=== PATIENT | male | born 1950 | race Caucasian/White ===

== ENCOUNTER 2023-05-27 16:54 | Inpatient (IN) | payer OTHER, MEDICARE ==
[~2023-05-27] VITALS: Ht 175.3 cm; Wt 128.1 kg
[~2023-05-27 16:54] MED LIST: AMLO10 PO; ASPI81CH PO; ATOR10 PO; BACI500TO BOTHEYES; BP MEDICATION; BUPR75 PO; CIPR500 PO; CITA20 PO; ETOD400 PO; HYDACE10B PO; HYDCHL25 PO; K-TAB ER8 MEQ PO; LEVFLO500 PO; METH10; Norco 7.5-3251 EACH PO; OMEP20ER PO; OXYC5 PO; TRAZ100; TRAZ100 PO; [UNRECOGNIZED DRUG - REMARK]
[2023-05-27 18:53] LABS: BASOPHILS ABSOLUTE AUTO 0.04 K/mm3 (0.00-0.23); BASOPHILS PERCENT AUTO 0 % (0-2); Base Excess Venous -1.1 mmol/L; Bicarbonate Venous 22.5 mmol/L (24.0-30.0); EOSINOPHILS ABSOLUTE AUTO 0.04 K/mm3 (0.00-0.68); EOSINOPHILS PERCENT AUTO 0 % (0-6); Hematocrit 43.9 % (37.0-53.0); Hemoglobin 14.2 g/dL (13.5-17.5); IMMATURE GRAN ABSOLUTE AUTO 0.06 K/mm3 (0.00-0.10); IMMATURE GRAN PERCENT AUTO 0 % (0-1); LYMPHOCYTES ABSOLUTE AUTO 0.63 K/mm3 (0.84-5.20); LYMPHOCYTES PERCENT AUTO 4 % (21-46); MONOCYTES ABSOLUTE AUTO 1.12 K/mm3 (0.16-1.47); MONOCYTES PERCENT AUTO 7 % (4-13); Mean Corpuscular HGB 29.2 pg (26.0-34.0); Mean Corpuscular HGB Conc 32.3 g/dL (31.5-36.5); Mean Corpuscular Volume 90 fL (80-100); Mean Platelet Volume 11.1 fL (9.1-12.4); NEUTROPHILS ABSOLUTE AUTO 13.42 K/mm3 (1.96-9.15); NEUTROPHILS PERCENT AUTO 88 % (41-73); PCO2 Venous 52.5 mmHg (38-42); Platelet Count 296 K/mm3 (150-400); RDW Coefficient Variation 12.7 % (11.7-14.2); RDW Standard Deviation 42.2 fL (35.1-46.3); Red Blood Cell Count 4.86 M/mm3 (4.30-5.90); White Blood Cell Count 15.31 K/mm3 (4.00-11.30); pH Blood Venous 7.29 (7.34-7.37)
[2023-05-27 19:20] LABS: Albumin, Blood 2.6 g/dL (3.4-5.0); Albumin/Globulin Ratio 0.5 (0.8-1.8); Bilirubin, Total 0.9 mg/dL (0.1-1.0); Bun/Creatinine Ratio 29.5 (12.0-20.0); Calcium, Blood 9.9 mg/dL (8.5-10.1); Creatinine, Blood 1.76 mg/dL (0.60-1.20); Globulin, Blood 5.6 g/dL (2.2-4.0); Potassium, Blood 3.7 mmol/L (3.5-5.5); Thyroid Stimulating Hormone 0.12 uIU/mL (0.360-4.800); Total Protein, Blood 8.2 g/dL (6.4-8.2)
[2023-05-27 19:33] LABS: Influenza A, PCR NEGATIVE (NEGATIVE); Influenza B, PCR NEGATIVE (NEGATIVE); Resp Syncytial Virus, PCR NEGATIVE (NEGATIVE); SARS-Cov-2 (COVID-19) PCR, MMC NEGATIVE (NEGATIVE)
[2023-05-27 23:03] VITALS: BP 156/69
[2023-05-28] VITALS (7 sets, daily range): BP systolic 120–154; BP diastolic 78–101
[2023-05-28 01:13] LABS: BASOPHILS ABSOLUTE AUTO 0.03 K/mm3 (0.00-0.23); BASOPHILS PERCENT AUTO 0 % (0-2); EOSINOPHILS PERCENT AUTO 0 % (0-6); Hematocrit 43.1 % (37.0-53.0); Hemoglobin 13.6 g/dL (13.5-17.5); IMMATURE GRAN ABSOLUTE AUTO 0.09 K/mm3 (0.00-0.10); IMMATURE GRAN PERCENT AUTO 1 % (0-1); LYMPHOCYTES ABSOLUTE AUTO 0.72 K/mm3 (0.84-5.20); LYMPHOCYTES PERCENT AUTO 5 % (21-46); MONOCYTES ABSOLUTE AUTO 0.61 K/mm3 (0.16-1.47); MONOCYTES PERCENT AUTO 4 % (4-13); Mean Corpuscular HGB 29.2 pg (26.0-34.0); Mean Corpuscular HGB Conc 31.6 g/dL (31.5-36.5); Mean Corpuscular Volume 93 fL (80-100); NEUTROPHILS ABSOLUTE AUTO 13.29 K/mm3 (1.96-9.15); NEUTROPHILS PERCENT AUTO 90 % (41-73); Platelet Count 306 K/mm3 (150-400); RDW Coefficient Variation 12.8 % (11.7-14.2); RDW Standard Deviation 43.8 fL (35.1-46.3); Red Blood Cell Count 4.65 M/mm3 (4.30-5.90); White Blood Cell Count 14.74 K/mm3 (4.00-11.30)
[2023-05-28 01:39] LABS: Albumin, Blood 2.4 g/dL (3.4-5.0); Albumin/Globulin Ratio 0.4 (0.8-1.8); Bilirubin, Total 0.6 mg/dL (0.1-1.0); Bun/Creatinine Ratio 28.5 (12.0-20.0); Calcium, Blood 9.7 mg/dL (8.5-10.1); Creatinine, Blood 2.07 mg/dL (0.60-1.20); Globulin, Blood 5.4 g/dL (2.2-4.0); Potassium, Blood 3.6 mmol/L (3.5-5.5); Total Protein, Blood 7.8 g/dL (6.4-8.2)
--- NOTE | 2023-05-28 02:18 | NUR ---
PHYSICIAN COMMUNICATION CONTACTED DR CHURCHILL TO NOTIFY HER THAT THE PATIENT'S 0100 LACTIC ACID CAME BACK AT 3.1. DR CHURCHILL SAID TO START GENTLE HYDRATION AT WITH NORMAL SALINE AT 100 ML/HR AND TO CHECK THE PATIENT'S LACTIC ACID EVERY FOUR HOURS UNTIL IT PEAKS.
[2023-05-28 04:59] LABS: Base Excess Venous -3.7 mmol/L; Bicarbonate Venous 21.4 mmol/L (24.0-30.0); PCO2 Venous 40.5 mmHg (38-42); pH Blood Venous 7.34 (7.34-7.37)
[2023-05-28 05:18] LABS: Adenovirus Not Detected (NOT DETECT); Bordetella pertussis Not Detected (NOT DETECT); Chlamydophila pneumoniae Not Detected (NOT DETECT); Coronavirus 229E Not Detected (NOT DETECT); Coronavirus HKU1 Not Detected (NOT DETECT); Coronavirus NL63 Not Detected (NOT DETECT); Coronavirus OC43 Not Detected (NOT DETECT); Human Metapneumovirus Not Detected (NOT DETECT); Human Rhinovirus/Enterovirus Detected (NOT DETECT); Influenza A/2009-H1 Not Detected (NOT DETECT); Influenza A/H1 Not Detected (NOT DETECT); Influenza A/H3 Not Detected (NOT DETECT); Influenza B Not Detected (NOT DETECT); Mycoplasma pneumoniae Not Detected (NOT DETECT); Parainfluenza Virus 1 Not Detected (NOT DETECT); Parainfluenza Virus 2 Not Detected (NOT DETECT); Parainfluenza Virus 3 Not Detected (NOT DETECT); Parainfluenza Virus 4 Not Detected (NOT DETECT); Respiratory Syncytial Virus Not Detected (NOT DETECT); SARS-Cov-2 (COVID-19), BioFire Not Detected (NOT DETECT)
--- NOTE | 2023-05-28 07:15 | NUR ---
SHIFT SUMMARY PATIENT ARRIVED TO PCU 15 VIA STRETCHER AT 2255. HE IS ALERT AND ORIENTED X4, WAS ABLE TO SELF TRANSFER TO THE BED WITH MINIMAL ASSISTANCE. PATIENT ARRIVED ON 3 LITERS O2 VIA NASAL CANULA, PATIENT WAS TACHYPNIC AT 33 BREATHS PER MINUTE WITH ACCESSORY MUSCLE USE. LUNG SOUNDS RHONCHUS THROUGHOUT. PATIENT PLACED ON BIPAP TO HELP WITH WORK OF BREATHING. PATIENT DENIED HAVING CHEST PAIN/PRESSURE, TROPONIN PEAKED AT 477. ATTEMPTED GENTLE HYDRATION WITH NS AT 100 ML/HR FOR LACTIC ACID OF 3.1 BUT PATIENT DESATED TO LOW 80'S AND REQUIRED INCREASED O2 AND RT ADJUSTED BIPAP SETTINGS. PATIENT DID NOT VOID OVERNIGHT, BLADDER SCAN SHOWED 61 ML. BLOOD PRESSURE STABLE. SINUS TACH IN 120'S ON TELE. NO EDEMA NOTED. PATIENT CURRENTLY ON 3 LITERS O2 VIA NC SATING 94%. WILL CONTINUE TO MONITOR. CALL LIGHT WITHIN REACH. CURRENTLY
--- NOTE | 2023-05-28 17:30 | NUR ---
ASSUMED CARE OF PT AT 0700 THIS AM. PT LETHARGIC, OPENS EYES TO VERBAL STIM, THEN QUICKLY FALLS BACK TO SLEEP. 02 SATS DROPPING INTO THE 80S, RR 22. PT PLACED ON BIPAP W 4L O2 BLEED IN FROM APROX 0800 TO 1130. PT'S IN ROOM TO VISIT, PT REQUESTS BIPAP OFF FOR NOW. PLACED ON 3L NC, AND 02 SATS HAVE MAINTAINED T/O THE DAY. SEE DOCUMENTED VS AND ASSESSMENT. PT IS MORE AWAKE THIS AFTERNOON AND STATES HIS BREATHING FEELS IMPROVED. RR DOWN 18, SPO2 94% 3L NC, BREATH SOUNDS LESS COARSE. PT HAS NOT BEEN ABLE TO PRODUCE A SPUTUM SAMPLE SO FAR TODAY. POWERGLIDE PLACED TO SERVANDO, LAC IV INFILTRATED WITH NS. +VOID AND +BM TODAY. PT IS ABLE TO USE CALL LIGHT FOR NEEDS, CALL LIGHT IN REACH. WILL CONTINUE TO MONITOR AND GIVE REPORT TO NOC SHIFT RN.
[2023-05-29 00:25] LABS: Source, Urine Clean Catch
[2023-05-29 00:27] LABS: Bilirubin, Urine Neg (Neg); Blood, Urine 1+ (Neg); Glucose Qualitative, Urine Neg (Neg); Ketones, Urine Neg (Neg); Leukocyte Esterase, Urine Neg (Neg); Nitrite, Urine Neg (Neg); Protein, Urine 1+ (Neg); Urobilinogen, Urine NORM (Normal)
[2023-05-29 00:33] LABS: Appearance, Urine Clear (Clear); Color, Urine Yellow (P-Yellow)
[2023-05-29 00:35] LABS: Amorphous Light (0-Heavy); Bacteria Few /hpf; Red Blood Cells, Urine 0-2 /hpf (0-2); Squamous Epithelial Cells Rare /hpf (Few); White Blood Cells, Urine 0-2 /hpf (0-5)
[2023-05-29 04:19] VITALS: BP 138/67
[2023-05-29 04:47] LABS: BASOPHILS ABSOLUTE AUTO 0.04 K/mm3 (0.00-0.23); BASOPHILS PERCENT AUTO 0 % (0-2); EOSINOPHILS PERCENT AUTO 0 % (0-6); Hematocrit 40.4 % (37.0-53.0); Hemoglobin 12.7 g/dL (13.5-17.5); Mean Corpuscular HGB 29.1 pg (26.0-34.0); Mean Corpuscular HGB Conc 31.4 g/dL (31.5-36.5); Mean Corpuscular Volume 93 fL (80-100); Mean Platelet Volume 11.1 fL (9.1-12.4); NRBC ABSOLUTE 0.03 K/mm3 (0.00-0.02); NRBC Auto 0.2 /100 WBC (0.0-0.2); Platelet Count 351 K/mm3 (150-400); RDW Coefficient Variation 12.8 % (11.7-14.2); RDW Standard Deviation 43.8 fL (35.1-46.3); Red Blood Cell Count 4.36 M/mm3 (4.30-5.90); White Blood Cell Count 18.62 K/mm3 (4.00-11.30)
[2023-05-29 04:54] LABS: IMMATURE GRAN ABSOLUTE AUTO 0.23 K/mm3 (0.00-0.10); IMMATURE GRAN PERCENT AUTO 1 % (0-1); LYMPHOCYTES ABSOLUTE AUTO 0.97 K/mm3 (0.84-5.20); LYMPHOCYTES PERCENT AUTO 5 % (21-46); MONOCYTES ABSOLUTE AUTO 0.59 K/mm3 (0.16-1.47); MONOCYTES PERCENT AUTO 3 % (4-13); NEUTROPHILS ABSOLUTE AUTO 16.79 K/mm3 (1.96-9.15); NEUTROPHILS PERCENT AUTO 90 % (41-73)
--- NOTE | 2023-05-29 04:54 | NUR ---
SHIFT SUMMARY PT A&Ox4, CALLS AND COMMUNICATES NEEDS APPROPRIATELY. BP STABLE, SR-ST 90-120's, DENIES CP/PRESSURE. PT WITH SHORT FUN OF V-TACH AND SHORT RUN OF SVT, ASYMPTOMATIC. SpO2> 92% 2L VIA NC, WORE BIPAP FOR APPROXIMATELY 1 HOUR THEN REFUSED. REPORTS SOB WITH ACTIVITY, VERY WHEEZY AND CONGESTED. NO OTHER EVENTS, WILL REPORT TO ONCOMING RN.
[2023-05-29 05:01] LABS: Bun/Creatinine Ratio 32.9 (12.0-20.0); Creatinine, Blood 2.19 mg/dL (0.60-1.20)
[2023-05-29 08:58] VITALS: BP 151/76
[2023-05-29 11:46] VITALS: BP 126/90
--- NOTE | 2023-05-29 15:01 | NUR ---
ASSUMED CARE OF PT AT 0700 THIS AM. NO ACUTE EVENTS OVERNIGHT REPORTED. PT NOW ON 2L O2 VIA NC, SPO2>92%. PT HAS NO COMPLAINTS THIS AM. PT IS ABLE TO USE CALL LIGHT FOR NEEDS, CALL LIGHT IN REACH, WILL CONTINUE TO MONITOR.
[2023-05-29 16:37] VITALS: BP 157/89
--- NOTE | 2023-05-29 19:27 | NUR ---
NO CHANGES SINCE LAST NOTE. REPORT GIVEN TO NOC SHIFT RN.
[2023-05-29 21:00] VITALS: BP 153/57
[2023-05-29 23:18] VITALS: BP 152/76
[2023-05-30 04:13] VITALS: BP 152/85
[2023-05-30 04:15] LABS: Hemoglobin 11.9 g/dL (13.5-17.5); Mean Corpuscular HGB Conc 32.2 g/dL (31.5-36.5); Mean Corpuscular Volume 90 fL (80-100); Mean Platelet Volume 10.8 fL (9.1-12.4); NRBC ABSOLUTE 0.02 K/mm3 (0.00-0.02); NRBC Auto 0.1 /100 WBC (0.0-0.2); Platelet Count 323 K/mm3 (150-400); RDW Coefficient Variation 12.8 % (11.7-14.2); White Blood Cell Count 13.63 K/mm3 (4.00-11.30)
[2023-05-30 04:37] LABS: Bun/Creatinine Ratio 41.3 (12.0-20.0); Calcium, Blood 9.2 mg/dL (8.5-10.1); Creatinine, Blood 1.89 mg/dL (0.60-1.20); Potassium, Blood 4.1 mmol/L (3.5-5.5); Thyroxine (T4) 8.4 ug/dL (4.5-12.1)
--- NOTE | 2023-05-30 04:42 | NUR ---
SHIFT SUMMARY: PT ALERT AND ORIENTED X4, ABLE TO FOLLOW COMMANDS AND MAKE NEEDS KNOWN. BP AND HR STABLE. AFEBRILE, LUNG SOUNDS REMAIN COARSE WITH WHEEZES, PT WITH NON PRODUCTIVE COUGH. RESP 22-24. ON 3L NC SATS >94%. DENIES CP/PRESSURE. PULSES STRONG AND EQUAL THROUGHOUT. PT WITH IMPROVED URINIARY OUTPUT APPROX 1200 ML. ABLE TO USE URINAL IND AT BEDSIDE. NO BM. DENIES PAIN. BED IN LOW, CALL LIGHT IN REACH, WILL REPORT TO ONCOMING RN.
[2023-05-30 07:56] VITALS: BP 158/77
--- NOTE | 2023-05-30 12:09 | NUR ---
ASSUMED CARE OF PT AT 0700 THIS AM. PT OOB TO RECLINER CHAIR FOR BREAKFAST AND HAS STAYED IN THE CHAIR SINCE. REINFORCED TEACHING ABOUT FLUTTER VALVE USE, COUGH/DEEP BREATHE AND IMPORTANCE OF BEING OOB. SP02 > 94% ON 3.5L NC. APROX 1200 RT JEM SPOKE WITH THIS RN ABOUT CONCERNS SHE HAS FOR THE PT'S BREATHING. SHE PLACED PT ON BIPAP AND IS CONCERNED HE MAY BE FLUID OVERLOADED. DR GALLO CONTACTED WITH CONCERNS, STATES HE WILL REVIEW THE CHART AND PLACE ORDERS. PT RESTING IN RECLINER WITH BIPAP IN PLACE, SPO2 97%, HR 80 AT THIS TIME. CALL LIGHT IN REACH, WILL CONTINUE TO MONITOR.
[2023-05-30 12:15] VITALS: BP 146/78
[2023-05-30 15:48] VITALS: BP 154/76
--- NOTE | 2023-05-30 18:20 | NUR ---
REPEAT CXR THIS AFTERNOON. PT GIVEN 40MG LASIX IV WITH GOOD URINE OUTPUT. PT STATES HIS BREATHING FEELS BETTER AND HE IS TOLERATING BEING OFF THE BIPAP, 3L O2 VIA NC. ECHO COMPLETED THIS AFTERNOON, TECH REPORTS DIFFICULTY OBTAINING IMAGES D/T PT'S BODY HABITUS. STATES SHE WILL TRY AGAIN TOMORROW. NO OTHER ACUTE EVENTS T/O THE SHIFT. PT IS RESTING IN BED AT THIS TIME, APPEARS TO BE SLEEPING, NO S/SX OF RESP DISTRESS NOTED, HR 75 SP02 100%. CALL LIGHT IN REACH, PT USES FOR NEEDS. WILL CONTINUE TO MONITOR AND GIVE REPORT TO NOC SHIFT RN.
[2023-05-30 20:36] VITALS: BP 153/56
[2023-05-31 00:30] VITALS: BP 155/72
[2023-05-31 04:02] VITALS: BP 156/70
[2023-05-31 04:51] LABS: Bun/Creatinine Ratio 42.6 (12.0-20.0); Calcium, Blood 9.1 mg/dL (8.5-10.1); Creatinine, Blood 1.69 mg/dL (0.60-1.20); Potassium, Blood 4.6 mmol/L (3.5-5.5)
--- NOTE | 2023-05-31 06:47 | NUR ---
SHIFT SUMMARY PATIENT ALERT AND ORIENTED X4. HAD NO COMPLAINTS OF PAIN OR SHORTNESS OF BREATH. PATIENT CONTINUES ON 3 LITERS O2 VIA NC, LUNG SOUNDS WHEEZY THROUGHOUT. VITAL SIGNS STABLE. NO ACUTE ISSUES NOTED OVERNIGHT. WILL CONTINUE TO MONITOR. CALL LIGHT WITHIN REACH.
--- NOTE | 2023-05-31 07:19 | NUR ---
Bedside report received from LAUREL Estrada. Pt is awake, coughing occasionally and asking for more ice water.
--- NOTE | 2023-05-31 08:44 | NUR ---
pt states that he is extremely thirsty. Assisted up to recliner chair at bedside for breakfast. Ice water provided. Tachypnea and mild dyspnea noted with activity.
[2023-05-31 08:45] VITALS: BP 122/75
--- NOTE | 2023-05-31 14:39 | NUR ---
Pt is napping in the recliner chair.
[2023-05-31 15:37] VITALS: BP 154/63
[2023-05-31 15:38] VITALS: BP 154/63
--- NOTE | 2023-05-31 16:13 | NUR ---
Pt awakened, while sitting in recliner, for routine vital signs. Attempted to use the flutter valve, but it was a weak effort and he was still a little sleepy. Noted lung sounds are still wheezy throughout and he has a non productive but moist sounding cough. Assisted with sponge bath by PCT and then got back into bed. Appears to be sleeping at this time, in bed.
[2023-05-31 20:11] VITALS: BP 175/65
[2023-06-01 04:45] VITALS: BP 175/65
[2023-06-01 04:56] LABS: Hematocrit 40.2 % (37.0-53.0); Hemoglobin 12.6 g/dL (13.5-17.5); Mean Corpuscular HGB Conc 31.3 g/dL (31.5-36.5); Mean Corpuscular Volume 92 fL (80-100); Mean Platelet Volume 10.2 fL (9.1-12.4); Platelet Count 354 K/mm3 (150-400); RDW Coefficient Variation 12.8 % (11.7-14.2); RDW Standard Deviation 43.1 fL (35.1-46.3); Red Blood Cell Count 4.35 M/mm3 (4.30-5.90); White Blood Cell Count 15.35 K/mm3 (4.00-11.30)
[2023-06-01 05:20] LABS: Bun/Creatinine Ratio 40.4 (12.0-20.0); Calcium, Blood 8.9 mg/dL (8.5-10.1); Creatinine, Blood 1.46 mg/dL (0.60-1.20); Potassium, Blood 4.7 mmol/L (3.5-5.5)
--- NOTE | 2023-06-01 06:14 | NUR ---
SHIFT SUMMARY A/OX4, SBA FOR TRANSFERS. DENIES CHEST PAIN/PRESSURE. SPO2 >92% ON 2L NC, COARSE WHEEZES NOTED T/O. DYSPNEA ON EXERTION. VSS, NO ACUTE CHANGES AT THIS TIME. BED IN LOWEST POSITION WITH CALL LIGHT IN REACH. WILL CONTINUE TO MONITOR AND REPORT TO ONCOMING RN.
[2023-06-01 08:36] VITALS: BP 149/70
--- NOTE | 2023-06-01 10:44 | NUR ---
ASSUMPTION OF CARE ASSUMED CARE AT 0700. PT AOX4, EASILY AROUSABLE TO VERBAL STIMULI. PLEASANT, RECEPTIVE TO EDUCATION. ABLE TO EASILY COMMUNICATE NEEDS. VSS. CURRENTLY ON 2L VIA NC, SAT >95%. CORSE WHEEZES AUSCULTATED T/O. WEAK NONPRODUCTIVE COUGH ASSESSED, ENCOURAGED TO USE FLUTTER VALVE. MEDICATED PER EMAR W/ MUCINEX. UP TO CHAIR W/ SBA FOR DEVICE/CORD MANAGEMENT. TOLERATING PO INTAKE. VOIDING. CALL LIGHT WITHIN REACH.
[2023-06-01 11:32] VITALS: BP 108/56
--- NOTE | 2023-06-01 12:15 | NUR ---
Pt resting in recliner chair and is A&OX4. Pt denies pain, nausa, and anxiety at this time. He reports his dyspnea has improved but is still mildly SOB. Pt reports living at home with his spouse. He reports having 1 adult child and his spouse has 1 adult child. Both are supportive of any needs he and his spouse may have. Listened as Pt discusses events leading up to hospital stay. He reports coming back from [place] when he started feeling ill. Continued supportive listening. Engaged in therapeutic conversation regarding code status wishes. Educated on life sustaining treatments including risks and implications to CPR/Intubation. Pt reports his wishes are to remain a Full Code. Discussed the importance to re-evaluate wishes on a regular bases as health changes. Pt reports no concerns at this time. Spoke with Primary RN Ary and discussed case. Palliative Care will remain available
[2023-06-01 15:13] VITALS: BP 157/68
--- NOTE | 2023-06-01 17:04 | NUR ---
SHIFT SUMMARY NO ACUTE CHANGES THIS SHIFT. VSS. ABLE TO TITRATE OXYGEN USE TO 1L VIA NC WHILE AWAKE, PT REQ 2L VIA NC WHILE SLEEPING. PT UP TO CHAIR AND RESTROOM W/ SBA FOR CORD/DEVICE MANAGEMENT. ABLE TO REPOSITION HIMSELF IN CHAIR AND IN BED. SLEPT THROUGHOUT MORNING AND EARLY AFTERNOON, EASILY AROUSABLE TO VERBAL STIMULI. VISITOR AT BEDSIDE T/O AFTERNOON. TOLERATING PO INTAKE. VOIDING. BM THIS SHIFT. PT RECEPTIVE TO EDUCATION. CALL LIGHT WITHIN REACH. WILL REPORT TO ONCOMING RN.
[2023-06-01 21:11] VITALS: BP 159/81
[2023-06-02 03:41] VITALS: BP 151/66
--- NOTE | 2023-06-02 04:45 | NUR ---
SHIFT SUMMARY PT A&Ox4, CALLS AND COMMUNICATES NEEDS APPROPRIATELY. BP STABLE, NOT ON TELE, DENIES CP/PRESSURE. SpO2> 92% 1-2L VIA NC, REPORTS INTERMITENT SOB, VERY WHEEZY AND CONGESTED. PT CONTINENT OF URINE, USES URINAL AT BEDSIDE, NO BM THIS SHIFT. NO OTHER EVENTS, WILL REPORT TO ONCOMING RN.
[2023-06-02 07:45] VITALS: BP 152/79
--- NOTE | 2023-06-02 10:00 | NUR ---
ASSUMPTION OF CARE ASSUMED PATIENT CARE AROUND 0700. PT AOX4, PLEASANT AND EASILY AROUSABLE TO VERBAL STIMULI. VSS, SATS >92% ON 1L VIA NASAL CANNULA. PT DOES REQUIRE ADDITIONAL OXYGEN AT 2L VIA NASAL CANNULA WHILE SLEEPING. COARSE WHEEZING AUSCULTATED T/O. SHORTNESS OF BREATH ASSESSED W/ MOBILITY. COUGH ASSESSED, WEAK AND NONPRODUCTIVE AT TIMES. PT UP W/ SBA FOR DEVICE/CORD MANAGEMENT ONLY. CURRENTLY SITTING IN CHAIR SLEEPING. TOLERATING PO INTAKE. VOIDING. MD TO BEDSIDE THIS MORNING FOR ROUNDING, NO ADDITIONAL ORDERS RCVD. IS CURRENTLY MEDICAL STATUS. CALL LIGHT WITHIN REACH.
[2023-06-02 15:08] VITALS: BP 136/65
--- NOTE | 2023-06-02 16:00 | NUR ---
TRANSFER NOTE PT TRANSFERRED TO MEDICAL FLOOR APPROX 1550 VIA WHEELCHAIR. REPORT GIVEN TO ACCEPTING [facility]. PERSONAL BELONGINGS TRANSFERRED W/ PT. PT AGREES W/ PLAN OF CARE & UNIT TRANSFER.
[2023-06-02 16:28] VITALS: BP 144/69
--- NOTE | 2023-06-02 18:00 | NUR ---
TRANSFER NOTE PATIENT NEW TRANSFER TO UNIT FROM PCU RM 15. DROPLET ISO FOR POSITIVE RHINOVIRUS. 1-2 L VIA NC, CONT BIOX IN PLACE. MAINTAINTS SATS ABOVE 92%. LS WHEEZY AND COARSE, CONGESTED AND NON-PRODUCTIVE COUGH. SBA TO BATHROOM FOR HELP WITH LINES AND CORDS. TOLERATING CARDIAC DIET AND LIQUIDS. POWERGLIDE TO LEFT UPPER ARM. SPOUSE PRESENT IN ROOM DURING DINNER.
--- NOTE | 2023-06-02 19:13 | NUR ---
ASSUMED CARE OF PT @1830HRS PT NEEDS MET CALL BROCK WITHIN REACH
[2023-06-02 19:25] VITALS: BP 154/88
[2023-06-03 05:22] VITALS: BP 164/86
[2023-06-03 05:24] LABS: Hematocrit 41.7 % (37.0-53.0); Hemoglobin 13.5 g/dL (13.5-17.5); Mean Corpuscular HGB 29.3 pg (26.0-34.0); Mean Corpuscular HGB Conc 32.4 g/dL (31.5-36.5); Mean Corpuscular Volume 91 fL (80-100); Mean Platelet Volume 9.9 fL (9.1-12.4); Platelet Count 303 K/mm3 (150-400); RDW Coefficient Variation 13.1 % (11.7-14.2); RDW Standard Deviation 42.7 fL (35.1-46.3); White Blood Cell Count 13.09 K/mm3 (4.00-11.30)
--- NOTE | 2023-06-03 05:37 | NUR ---
SHIFT SUMMERY, PT HAS COUGH SOMETIMES WITH CORSE LUNG SOUNDS, PT HAS WHEEZING TO BILAT LUNGS. PT GENERLIZE NOT FEELING WELL. PT GETTING ALL WRAPPED UP IN O2 AND O2 SAT MONITOR, PT ABLE TO VOID IN BR WITH 1 ASSIST TO HELP WITH LINES. PT POWER GLIDE NOT WORKING TO DRAW LABS, FLUSHES WELL. CALL LIGHT IN REACH.
[2023-06-03 05:43] LABS: Bun/Creatinine Ratio 27.7 (12.0-20.0); Calcium, Blood 8.8 mg/dL (8.5-10.1); Creatinine, Blood 1.41 mg/dL (0.60-1.20); Potassium, Blood 4.4 mmol/L (3.5-5.5)
[2023-06-03 07:41] VITALS: BP 187/85
[2023-06-03 16:09] VITALS: BP 154/119
--- NOTE | 2023-06-03 17:26 | NUR ---
SHIFT SUMMARY: NO ACUTE EVENTS. STATED PAIN IS CONTROLLED. LUNGS SOUND TIGHT WITH FAINT EXP WHEEZES THROUGHOUT, LLL SOUNDS MORE MOIST. ON O2 @ 1 L/MIN NC WHILE AWAKE, CONTINUOUS OXIMETRY SHOWS O2 SATS 88-93%. COUGHING LESS. GOOD APPETITE. AMBULATING TO BR WITH SBA, SATURATIONS RECOVER QUICKLY. STATED HE IS FEELING BETTER, IS HOPING TO GO HOME TOMORROW.
[2023-06-03 19:35] VITALS: BP 169/66
[2023-06-04 04:18] VITALS: BP 170/54
[2023-06-04 05:28] VITALS: BP 157/78
--- NOTE | 2023-06-04 05:34 | NUR ---
SHIFT SUMMARY PATIENTA/Ox4, BRIGHT AFFECT. DENIES PAIN NOR DISCOMFORT. CONTINUES TO HAVE EXPIRATORY WHEEZING THROUGHOUT. NO COUGHING NOTED THIS SHIFT. ATTEMPTED TO TITRATE O2 DOWN TO 1L WITHOUT SUCCESS, SPO2 85-87% ON 1L 02 NC. CONTINUES ON 2L O2 VIA NC, SPO2 88-LOW 90s. NO ACUTE CHANGES NOTED OVERNIGHT. BED LOW, CALL LIGHT WITHING REACH.
[2023-06-04 07:53] VITALS: BP 150/80
[2023-06-04 10:06] LABS: Calcium, Blood 9.1 mg/dL (8.5-10.1); Creatinine, Blood 1.46 mg/dL (0.60-1.20); Potassium, Blood 4.1 mmol/L (3.5-5.5)
[2023-06-04] MEDS ORDERED: Acetaminophen325 M1 PO (13:09)
[2023-06-04] MEDS ORDERED: Celexa20 MG PO (13:10)
[2023-06-04] MEDS ORDERED: ALBU90OI INH (13:10)
[2023-06-04] MEDS ORDERED: DOCU100 PO (13:10)
[2023-06-04] MEDS ORDERED: DILT180 PO (13:10)
[2023-06-04] MEDS ORDERED: LACT PO (13:11)
[2023-06-04] MEDS ORDERED: OMEP20ER PO (13:11)
[2023-06-04] MEDS ORDERED: GUAI600T33 PO (13:11)
[2023-06-04] MEDS ORDERED: PRED20 (13:12)
[2023-06-04] MEDS ORDERED: SULTRIDS PO (13:12)
--- NOTE | 2023-06-04 16:25 | NUR ---
Patient ready for discharge today. Home O2 eval done, patient will go home with 2l oxygen. Continue Prednisone for 5 days and PO ABX for 2 days. Patient and verbalized understanding of discharge teaching. Removed midline, cath tip intact. Patient left medical unit at 1630.
== END 2023-06-04 16:33 | disposition home or self-care (01) | DRG 871 ==
LOC: ER 16:54 → MEDS 16:55 → PCU 16:55 → MEDS 21:54 → PCU 21:54 → MEDS 05-28 11:56 → PCU 05-28 11:56 → MEDS 06-02 16:37 → ENPENDDIS 06-04 12:04 → MEDS 06-04 16:33
PROVIDERS: Emergency Medicine; Family Medicine; Internal Medicine; Student in an Organized Health Care Education/Training Program; ADMIT Internal Medicine
PROC: 5A09357 Assistance with Respiratory Ventilation, Less than 24 Consecutive Hours, Continuous Positive Airway Pressure (ICD-10-PCS; principal; 2023-05-28)
PROC: 3E03329 Introduction of Other Anti-infective into Peripheral Vein, Percutaneous Approach (ICD-10-PCS; 2023-05-28)
DX: A41.89 Other specified sepsis (principal); J10.08 Influenza due to other identified influenza virus with other specified pneumonia; J96.21 Acute and chronic respiratory failure with hypoxia; J96.22 Acute and chronic respiratory failure with hypercapnia; J12.89 Other viral pneumonia; J14 Pneumonia due to Hemophilus influenzae; N17.9 Acute kidney failure, unspecified; Z68.41 Body mass index [BMI] 40.0-44.9, adult; I24.8 Other forms of acute ischemic heart disease; J44.0 Chronic obstructive pulmonary disease with (acute) lower respiratory infection; J44.1 Chronic obstructive pulmonary disease with (acute) exacerbation; R65.20 Severe sepsis without septic shock; B97.89 Other viral agents as the cause of diseases classified elsewhere; K21.9 Gastro-esophageal reflux disease without esophagitis; I12.9 Hypertensive chronic kidney disease with stage 1 through stage 4 chronic kidney disease, or unspecified chronic kidney disease; N18.30 Chronic kidney disease, stage 3 unspecified; E66.9 Obesity, unspecified; M54.9 Dorsalgia, unspecified; Z96.641 Presence of right artificial hip joint; G89.29 Other chronic pain; Z20.822 Contact with and (suspected) exposure to COVID-19; B97.10 Unspecified enterovirus as the cause of diseases classified elsewhere; F11.90 Opioid use, unspecified, uncomplicated; B96.89 Other specified bacterial agents as the cause of diseases classified elsewhere; F43.12 Post-traumatic stress disorder, chronic; F32.A Depression, unspecified; Z87.891 Personal history of nicotine dependence; Z79.82 Long term (current) use of aspirin; Z79.899 Other long term (current) drug therapy; Z90.49 Acquired absence of other specified parts of digestive tract
CPT/HCPCS: 0202U; 0241U; 36415; 71045; 80048; 80053; 81001; 82803; 83605; 83880; 84145; 84436; 84443; 84484; 85025; 85027; 87040; 87070; 87077; 87185; 87186; 87205; 93005; 93010; 93306; 94640; 94660; 94664; 94760; 94761; 94762; 96372; 96374; 96375; 96376; 99285-25; A9270; G0378; J0360; J0456; J0696; J1644; J1940; J2930; J7030; J7050; J7512

== ENCOUNTER 2024-01-26 10:55 | Day surgery (SDC) | payer OTHER ==
[~2024-01-26] VITALS: Ht 172.7 cm; Wt 132.2 kg
[~2024-01-26 10:55] MED LIST changes: +ALBU90OI INH; +Acetaminophen325 M1 PO; +Balanced Salt Epinephrine Irrigation Solution 500 mL IR SCH; +Celexa20 MG PO; +DILT180 PO; +DOCU100 PO; +GUAI600T33 PO; +LACT PO; +LISI20 PO; +Lidocaine HCl/Pf 1% 5 ML VIAL XX SCH; +Moxifloxacin HCL 0.5 MG/0.1 ML 0.4MLSYR LEFTEYE SCH; +NS 500 ML IV ONE; +PHENYLEPHRINE\\TROPICAMIDE\\TETRACAINE OPHTHALMIC DILATING SOLN LEFTEYE PRN; +PRED20; +Povidone-Iodine 450 DROP/30 ML Solution LEFTEYE SCH; +Povidone-Iodine 450 DROP/30 ML Solution ONE; +SERT100 PO; +SULTRIDS PO; +Triamcinolone Inj Susp 40 MG / ML 1ML Vial INJ SCH; +Triamcinolone Inj Susp 40 MG / ML 1ML Vial ONE
[2024-01-26] MEDS ORDERED: NS 500 ML IV ONE (11:39)
[2024-01-26] MEDS ORDERED: FentaNYL Citrate 50 MCG/ML 2 ML Injection ONE (12:04)
[2024-01-26] MEDS ORDERED: Midazolam HCl 1MG / ML 2ML Vial ONE (12:04)
[2024-01-26] MEDS ORDERED: Tetracaine HCl 0.5% Opth Soln 15 ml LEFTEYE ONE (12:19)
[2024-01-26] MEDS ORDERED: Glycopyrrolate 0.2 MG/ML 5ML VIAL ONE (12:30)
[2024-01-26 13:07] VITALS: BP 133/89
--- NOTE | 2024-01-26 13:08 | NUR ---
01/26/24 1308 Georgi Beltran PT STATES RECORDED B/P IS BASELINE FOR HIM. HE WAS ADVISED TO MONITOR B/P AT HOME AND FOLLOW UP WITH PCP, IF NEEDED.
== END 2024-01-26 13:03 | disposition home or self-care (01) ==
LOC: ORSCSDS 10:55
PROVIDERS: Ophthalmology
PROC: 08RK3JZ Replacement of Left Lens with Synthetic Substitute, Percutaneous Approach (ICD-10-PCS; principal; 2024-01-26 12:30)
DX: H25.12 Age-related nuclear cataract, left eye (principal); Z96.1 Presence of intraocular lens; I10 Essential (primary) hypertension; J44.9 Chronic obstructive pulmonary disease, unspecified; Z99.81 Dependence on supplemental oxygen; K21.9 Gastro-esophageal reflux disease without esophagitis; Z79.899 Other long term (current) drug therapy; Z79.82 Long term (current) use of aspirin; E66.01 Morbid (severe) obesity due to excess calories; Z68.41 Body mass index [BMI] 40.0-44.9, adult
CPT/HCPCS: J2250; J3010; J3301; J7040; V2632